=== PATIENT | female | born 1985 | race Caucasian/White ===

== ENCOUNTER 2021-09-30 15:06 | Emergency (ER) | payer MEDICAID, SELFPAY ==
--- NOTE | ~2021-09-30 | XR_ITS ---
EXAMINATION: XR ANKLE-LEFT XR FOOT-LEFT CLINICAL INFORMATION: Left ankle and left foot injury. COMPARISON: None TECHNIQUE: 3 views each of left ankle and left foot were obtained. FINDINGS: Left ankle: The bony alignments are intact. The cortices are intact. Articular margins, joint space appear unremarkable. Soft tissues are unremarkable. Left foot: The bony alignments are intact. The cortices are intact. Articular margins, joint space appear unremarkable. Soft tissues are unremarkable. XR/XR ankle LT min 3V IMPRESSION: Unremarkable radiographic appearance of the left ankle and left foot. Specifically, no radiographic evidence of any displaced fracture, subluxation or dislocation is seen.
--- NOTE | ~2021-09-30 | XR_ITS ---
EXAMINATION: XR ANKLE-LEFT XR FOOT-LEFT CLINICAL INFORMATION: Left ankle and left foot injury. COMPARISON: None TECHNIQUE: 3 views each of left ankle and left foot were obtained. FINDINGS: Left ankle: The bony alignments are intact. The cortices are intact. Articular margins, joint space appear unremarkable. Soft tissues are unremarkable. Left foot: The bony alignments are intact. The cortices are intact. Articular margins, joint space appear unremarkable. Soft tissues are unremarkable. XR/XR foot LT min 3V IMPRESSION: Unremarkable radiographic appearance of the left ankle and left foot. Specifically, no radiographic evidence of any displaced fracture, subluxation or dislocation is seen.
[2021-09-30 15:31] VITALS: BP 114/65; PULSE 93; RESP 18; TEMP 37.3; O2SAT 100; BMI 21.7
--- NOTE | 2021-09-30 16:37 | ED_ITS ---
HPI - Extremity Injury (Lower) General Chief Complaint: Extremity Injury, Lower Stated Complaint: L ankle pain Time Seen by Provider: 09/30/21 15:54 Source: patient Mode of arrival: ambulatory History of Present Illness HPI Narrative: 35-year-old female with no significant past medical history presenting to the ED complaining of left ankle and foot pain s/p twisting injury SNOW REMOVAL/PLOWING. Reports stepped wrong on the last step of steroids and rolled ankle, denies fall, head trauma or LOC. Has been ambulatory with pain. Denies numbness, tingling, weakness, injury to the area MD complaint: ankle injury and foot injury Related Data Allergies Allergy/AdvReac Type Severity Reaction Status Date / Time No Known Allergies Allergy Verified 09/30/21 15:34 Review of Systems Review of Systems: Constitutional: No Fever, No Chills ENT/Mouth: No Ear Pain, No Nasal Congestion, No Sinus Pain, No Hoarseness, No sore throat, No Rhinorrhea, No Swallowing Difficulty Cardiovascular: No Chest Pain, No SOB Respiratory: No Cough, No Sputum, No Wheezing Gastrointestinal: No Nausea, No Vomiting, No Diarrhea, No Constipation, No Abdominal pain Genitourinary:No Dysuria, No Urinary Frequency, No Urinary Incontinence, No Flank Pain Musculoskeletal: + joint pain, No Myalgias, + Joint Swelling Skin: No Skin Lesions, No rash Neuro: No Weakness, No Numbness, No Paresthesias Yes all other systems are reviewed and are negative [facility] Past Medical History Attestation statement: The following information was validated with the patient. Surgical History History of appendectomy Social History Social History Advance Directives: No Advance Directives Information Provided: Yes Patient : No Physical Exam Vital Signs: Vital Signs: Last Vital Signs Temp 99.2 F 09/30/21 15:31 Pulse 93 09/30/21 15:31 Resp 18 09/30/21 15:31 BP 114/65 09/30/21 15:31 Pulse Ox 100 09/30/21 15:31 BMI result Body Mass Index 21.7 Const: General: cooperative, healthy appearing and no acute distress Petey entation/consciousness: patient oriented x3 Limitations: no limitations HEENT: Head: Yes normal to inspection and Yes atraumatic Ears: hearing grossly normal bilaterally General nose exam: Normal external nose present Face and sinus: Yes normal facial exam Eyes: General: appearance normal, both eyes and all related structures EOM: EOMs intact bilaterally Neck: Neck: Yes normal visual inspection and Yes no meningeal signs Resp: Effort & Inspection: normal respiratory effort and no respiratory distress Cardio: Rate: regular rate Heart sounds: S1 normal heart sound present and S2 normal heart sound present Peripheral pulses: dorsalis pedis present Skin: Rashes: no rashes Wounds: no wounds Neuro: General: patient oriented x3, tone normal and no meningeal signs Gait exam (Neuro): Normal gait present Extrem: Other: Left foot and lateral ankle with noted swelling, no appreciable deformity/ecchy mosis or erythema. Tender to palpation greater to lateral ankle and lateral aspect of proximal foot. ROM of ankle and foot decreased secondary to pain. Neurovascularly intact distally. Sensation intact to light touch Course Course Course Narrative: Left ankle and foot x-rays unremarkable. Patient supplied with crutches an Aircast, is to follow-up with PCP MDM - Extremity Injury (Lower) MDM Narrative Medical decision making narrative: 35-year-old female with no significant past medical history presenting to the ED complaining of left ankle and foot pain s/p twisting injury SNOW REMOVAL/PLOWING. On exam vital signs stable, NAD, physical exam as above. Concern for fracture versus sprain Plan: X-rays Differential Diagnosis Differential diagnosis: Likely ankle sprain and strain and ankle fracture Medical Records Attestation: I reviewed the patient's medical records. Lab Data Attestation: I reviewed the patient's lab results. Discharge Plan Discharge Clinical Impression: Ankle sprain and strain Patient Disposition: Home, Self-Care Instructions: Ankle Strain (ED) Additional Instructions: Your x-rays do not show any acute fracture/break or dislocation. You have a see ankle/foot sprain Wear Aircast at home as needed for stability. Use crutches as needed. Ice, elevate, take Tylenol and Motrin for pain/swelling Follow-up with her doctor Referrals: PhysicianTeresita [Primary Care Provider] - 1 week
== END 2021-09-30 17:08 | disposition home or self-care (01) ==
PROVIDERS: Emergency Provider Emergency Medicine Emergency Medical Services
DX: S93.402A Sprain of unspecified ligament of left ankle, initial encounter (principal); X50.1XXA Overexertion from prolonged static or awkward postures, initial encounter; Y93.9 Activity, unspecified; Y92.9 Unspecified place or not applicable; Y99.9 Unspecified external cause status
CPT/HCPCS: 73610; 73630; 99283